=== PATIENT | male | born 1975 | race Hispanic/Latino ===

== ENCOUNTER 2022-09-17 16:27 | Inpatient (IN) | payer BC ==
[~2022-09-17] VITALS: Ht 172.7 cm; Wt 108.4 kg
[~2022-09-17 16:27] MED LIST: GLYCOPYRROLATE INJ 0.2 MG/ML VIAL ONE; LIDOCAINE HCL 2% LOCAL INJ 5 ML SDV VIAL INJ ONE; NEOSTIGMINE 1 MG/ML 10ML VIAL ONE; ONDANSETRON HCL INJ 2MG/ML 2ML 2 MG/ML VIAL ONE; POVIDONE IODINE 0.05% 0.05 % ML PO ONE; PROPOFOL IV EMULSION 10 MG/ML 20 ML VIAL ONE; ROCURONIUM BROMIDE 10 MG/ML 5ML VIAL IV ONE
[2022-09-17] MEDS ORDERED: Morphine 4mg INJECTION 4 MG/ML INJ IV STA (16:29)
[2022-09-17] MEDS ORDERED: ONDANSETRON HCL INJ 2MG/ML 2ML 2 MG/ML VIAL IV STA (16:29)
[2022-09-17] MEDS ORDERED: SODIUM CHLORIDE 0.9% 1000ML 1,000 ML IV STA (16:29)
[2022-09-17] MEDS ORDERED: Vancomycin IV 1 GM in SODIUM CHLORIDE 0.9% 250ML 250 ML IV ONE (16:45)
[2022-09-17] MEDS ORDERED: TRICOR145 MG PO (16:47)
[2022-09-17] MEDS ORDERED: ICOSAPENT ETHYL1 GM (16:47)
[2022-09-17] MEDS ORDERED: LIVALO2 MG PO (16:48)
[2022-09-17 16:50] LABS: BASOPHILS % 0.2 % (0.0-1.0); EOSINOPHILS # (AUTO) 0.1 (0.0-0.4); EOSINOPHILS % 1.3 % (0.0-6.0); HEMOGLOBIN 13.4 g/dL (14.0-18.0); LYMPHOCYTES # (AUTO) 1.3 (1.0-3.2); LYMPHOCYTES % 15.3 % (18.0-39.1); MEAN CORPUSCULAR HEMOGLOBIN 30.7 pg (28-32); MEAN CORPUSCULAR HGB CONC 33.5 g/dL (31-35); MEAN CORPUSCULAR VOLUME 91.5 fL (81-99); MONOCYTES # (AUTO) 0.9 (0.2-0.8); NEUTROPHILS # (AUTO) 6.3 (2.1-6.9); PLATELET COUNT 263 x10e3/uL (140-360); RED BLOOD COUNT 4.37 x10e6/uL (4.3-5.7); RED CELL DISTRIBUTION WIDTH 12.5 % (11.7-14.4)
[2022-09-17 17:00] LABS: INR 0.91; PROTHROMBIN TIME 12.8 seconds (11.9-14.5)
[2022-09-17 17:01] LABS: PARTIAL THROMBOPLASTIN TIME 33.8 seconds (23.8-35.5)
[2022-09-17 17:09] LABS: ALANINE AMINOTRANSFERASE 14 IU/L (0-55); ALBUMIN 3.9 g/dL (3.5-5.0); ALBUMIN/GLOBULIN RATIO 1.1 (0.8-2.0); ALKALINE PHOSPHATASE 87 IU/L (40-150); BLOOD UREA NITROGEN 15 mg/dL (7-26); BUN/CREATININE RATIO 15 (6-25); CALCIUM 9.3 mg/dL (8.4-10.2); CARBON DIOXIDE 22 mmol/L (22-29); CHLORIDE 106 mmol/L (98-107); GLUCOSE 117 mg/dL (74-118); MAGNESIUM 2.2 MG/DL (1.3-2.1); SODIUM 137 mmol/L (136-145)
[2022-09-17] MEDS: SODIUM CHLORIDE 0.9% 1000ML 1,000 ML IV SCH (17:42)
[2022-09-17 20:00] VITALS: BP 123/87; PULSE 66; RESP 19; TEMP 98.2; O2SAT 100
[2022-09-17] MEDS: Morphine 4mg INJECTION 4 MG/ML INJ IV PRN (20:47)
[2022-09-17 21:00] VITALS: BP 123/87; PULSE 66; RESP 19; TEMP 98.2; O2SAT 100
[2022-09-17 21:45] VITALS: BP 138/97; PULSE 69; RESP 19; TEMP 98.2; O2SAT 100
[2022-09-18] VITALS (9 sets, daily range): BP systolic 105–148; BP diastolic 65–93; PULSE 54–89; RESP 17–20; TEMP 98.5–100.1; O2SAT 97–99
[2022-09-18] MEDS: SODIUM CHLORIDE 0.9% 1000ML 1,000 ML IV SCH ×4 (01:25→18:01)
[2022-09-18] MEDS: Morphine 4mg INJECTION 4 MG/ML INJ IV PRN (04:38)
[2022-09-18] MEDS ORDERED: Vancomycin IV 500 MG in SODIUM CHLORIDE 0.9% 100 ML IV SCH (05:00)
[2022-09-18 05:08] LABS: BASOPHILS % 0.2 % (0.0-1.0); EOSINOPHILS # (AUTO) 0.1 (0.0-0.4); EOSINOPHILS % 0.8 % (0.0-6.0); HEMATOCRIT 38.7 % (38.2-49.6); HEMOGLOBIN 12.8 g/dL (14.0-18.0); LYMPHOCYTES # (AUTO) 1.1 (1.0-3.2); LYMPHOCYTES % 12.9 % (18.0-39.1); MEAN CORPUSCULAR HEMOGLOBIN 30.5 pg (28-32); MEAN CORPUSCULAR HGB CONC 33.1 g/dL (31-35); MEAN CORPUSCULAR VOLUME 92.4 fL (81-99); MONOCYTES # (AUTO) 0.9 (0.2-0.8); NEUTROPHILS # (AUTO) 6.4 (2.1-6.9); NEUTROPHILS % 74.7 % (38.7-80.0); PLATELET COUNT 260 x10e3/uL (140-360); RED BLOOD COUNT 4.19 x10e6/uL (4.3-5.7); RED CELL DISTRIBUTION WIDTH 12.4 % (11.7-14.4)
[2022-09-18 05:33] LABS: ALBUMIN 3.4 g/dL (3.5-5.0); ALBUMIN/GLOBULIN RATIO 1.1 (0.8-2.0); ANION GAP 9.9 mmol/L (8-16); CALCIUM 8.5 mg/dL (8.4-10.2); CREATININE, SERUM 0.85 mg/dL (0.72-1.25); POTASSIUM 3.9 mmol/L (3.5-5.1)
[2022-09-18] MEDS ORDERED: ACETAMINOPHEN 1000 MG/100 ML IV PRN (08:45)
[2022-09-18] MEDS ORDERED: FENTANYL CITRATE/PF 100MCG/2 ML INJ ONE (13:03)
[2022-09-18] MEDS ORDERED: MIDAZOLAM HCL 2 MG/2 ML VIAL ONE (13:03)
[2022-09-18] MEDS ORDERED: BUPIVACAINE 0.5%/EPI 30 ML SDV INJ ONE (13:28)
[2022-09-18] MEDS ORDERED: LIDOCAINE JELLY 2% 10ML URO-JET ONE (13:28)
[2022-09-18] MEDS ORDERED: SUGAMMADEX SODIUM 200 MG/2 ML VIAL IV ONE (14:45)
[2022-09-18] MEDS ORDERED: KETOROLAC TROMETHAMINE 30 MG/ML VIAL IV PRN (14:45)
[2022-09-18] MEDS: FENTANYL CITRATE/PF 100MCG/2 ML INJ ONE ×2 (15:15→15:20)
[2022-09-18] MEDS: ONDANSETRON HCL INJ 2MG/ML 2ML 2 MG/ML VIAL IV PRN (16:12)
[2022-09-18] MEDS: HYDROMORPHONE 1MG/1ML INJ IV PRN (16:13)
[2022-09-18] MEDS ORDERED: VANCOMYCIN 300 ML IV SCH (17:00)
[2022-09-19] VITALS (7 sets, daily range): BP systolic 99–124; BP diastolic 68–85; PULSE 55–68; RESP 17–20; TEMP 98.1–98.7; O2SAT 99–100
[2022-09-19] MEDS: SODIUM CHLORIDE 0.9% 1000ML 1,000 ML IV SCH ×3 (03:11→21:52)
[2022-09-19 05:16] LABS: BASOPHILS % 0.3 % (0.0-1.0); EOSINOPHILS # (AUTO) 0.1 (0.0-0.4); EOSINOPHILS % 1.7 % (0.0-6.0); HEMATOCRIT 38.3 % (38.2-49.6); HEMOGLOBIN 12.7 g/dL (14.0-18.0); LYMPHOCYTES # (AUTO) 1.2 (1.0-3.2); LYMPHOCYTES % 17.6 % (18.0-39.1); MEAN CORPUSCULAR HEMOGLOBIN 30.9 pg (28-32); MEAN CORPUSCULAR HGB CONC 33.2 g/dL (31-35); MEAN CORPUSCULAR VOLUME 93.2 fL (81-99); MONOCYTES # (AUTO) 0.6 (0.2-0.8); MONOCYTES % 8.4 % (4.4-11.3); NEUTROPHILS % 71.7 % (38.7-80.0); PLATELET COUNT 258 x10e3/uL (140-360); RED BLOOD COUNT 4.11 x10e6/uL (4.3-5.7); RED CELL DISTRIBUTION WIDTH 12.4 % (11.7-14.4)
[2022-09-19 05:38] LABS: ANION GAP 11.8 mmol/L (8-16); CREATININE, SERUM 0.82 mg/dL (0.72-1.25); POTASSIUM 3.8 mmol/L (3.5-5.1)
[2022-09-19 05:51] LABS: CALCIUM 8.4 mg/dL (8.4-10.2)
[2022-09-19] MEDS: HYDROCODONE/APAP 7.5MG-325MG 1 EA TAB PO PRN ×2 (07:48→16:14)
[2022-09-19] MEDS: HYDROMORPHONE 1MG/1ML INJ IV PRN (11:48)
[2022-09-19] MEDS: ONDANSETRON HCL INJ 2MG/ML 2ML 2 MG/ML VIAL IV PRN (11:48)
[2022-09-20 01:23] VITALS: BP 113/77; PULSE 58; RESP 18; TEMP 97.8; O2SAT 100
[2022-09-20 04:50] VITALS: BP 129/89; PULSE 69; RESP 18; TEMP 98.3; O2SAT 98
[2022-09-20] MEDS: HYDROCODONE/APAP 7.5MG-325MG 1 EA TAB PO PRN ×3 (06:33→16:23)
[2022-09-20] MEDS: ONDANSETRON HCL INJ 2MG/ML 2ML 2 MG/ML VIAL IV PRN (08:53)
[2022-09-20] MEDS: HYDROMORPHONE 1MG/1ML INJ IV PRN (08:54)
[2022-09-20 09:00] VITALS: BP 129/89; PULSE 69; RESP 18; TEMP 98.3; O2SAT 98
[2022-09-20 09:14] VITALS: BP 113/76; PULSE 58; RESP 18; TEMP 98; O2SAT 98
[2022-09-20 11:42] VITALS: BP 131/78; PULSE 66; RESP 17; TEMP 98.3; O2SAT 97
[2022-09-20 17:14] VITALS: BP 123/85; PULSE 55; RESP 18; TEMP 97.9; O2SAT 99
== END 2022-09-20 17:35 | disposition home or self-care (01) | DRG 334 ==
LOC: ER 16:30 → ERHOLD 17:03 → MED/SURG 19:56
PROVIDERS: ADMIT Family Medicine; ATTEND Family Medicine
PROC: 0D9Q0ZZ Drainage of Anus, Open Approach (ICD-10-PCS; 2022-09-18)
PROC: 0D9P0ZZ Drainage of Rectum, Open Approach (ICD-10-PCS; 2022-09-18)
PROC: 0DBP0ZZ Excision of Rectum, Open Approach (ICD-10-PCS; principal; 2022-09-18 13:58)
DX: K61.1 Rectal abscess (principal); D64.9 Anemia, unspecified; E66.9 Obesity, unspecified; Z68.36 Body mass index [BMI] 36.0-36.9, adult; E78.5 Hyperlipidemia, unspecified; I10 Essential (primary) hypertension; Z20.822 Contact with and (suspected) exposure to COVID-19
CPT/HCPCS: 0223U; 36415; 80048; 80053; 83735; 84484; 85025; 85610; 85730; 87040; 93005; 99284; J1170; J1885; J2001; J2250; J2270; J2405; J2543; J2710; J3370; J7030; J7050